=== PATIENT | male | born 1965 | race African-American/Black ===

== ENCOUNTER 2017-02-13 05:00 | Emergency (ER) | payer SELFPAY ==
[~2017-02-13] VITALS: Ht 185.4 cm; Wt 100.0 kg
[2017-02-13 05:07] VITALS: BP 158/100
== END 2017-02-13 07:00 | disposition home or self-care (01) ==
LOC: ER 05:00
DX: S09.90XA Unspecified injury of head, initial encounter (principal); R51 Headache; M25.561 Pain in right knee; H93.19 Tinnitus, unspecified ear; R03.0 Elevated blood-pressure reading, without diagnosis of hypertension; V49.49XA Driver injured in collision with other motor vehicles in traffic accident, initial encounter; Y93.89 Activity, other specified; Y92.410 Unspecified street and highway as the place of occurrence of the external cause; J45.909 Unspecified asthma, uncomplicated
CPT/HCPCS: 99283